=== PATIENT | female | born 1950 ===

== ENCOUNTER 2021-08-22 05:39 | Day surgery (SDC) | payer OTHER ==
[~2021-08-22 05:39] MED LIST: CYMBALTA60 MG PO; FENOFIBRATE PO; GLYPIZIDE PO; LYRICA PO; SIMVASTATIN PO
== END 2021-08-22 11:58 | disposition home or self-care (01) ==
LOC: CIR.AMB 05:39
PROVIDERS: ATTEND Orthopaedic Surgery Hand Surgery
DX: G56.02 Carpal tunnel syndrome, left upper limb (principal); Z20.822 Contact with and (suspected) exposure to COVID-19